=== PATIENT | female | born 1940 | race African-American/Black ===

== ENCOUNTER 2017-12-02 18:31 | Inpatient (IN) | payer MEDICARE, OTHER ==
[~2017-12-02] VITALS: Ht 162.6 cm; Wt 70.3 kg
[2017-12-02] MEDS ORDERED: Z GUARD REMEDY PASTE 57 GM TUBE TOP PRN (20:15)
[2017-12-02] MEDS ORDERED: HYDROCODONE/APAP 5-325MG TABLET PO PRN (20:15)
[2017-12-02] MEDS ORDERED: MAGNESIUM HYDROXIDE 30 ML LIQUID UDC PO PRN (20:15)
[2017-12-02] MEDS ORDERED: ACETAMINOPHEN 325 MG TABLET PO PRN (20:15)
[2017-12-02] MEDS ORDERED: ONDANSETRON 4 MG/2 ML VIAL IV PRN (20:15)
[2017-12-02 21:19] LABS: BASOPHILS % (AUTO) 0.4 % (0.0-2.0); EOSINOPHILS # (AUTO) 0.1 K/uL (0.0-0.7); EOSINOPHILS % (AUTO) 3.2 % (0.0-7.0); HEMOGLOBIN 13.6 g/dL (10.9-14.3); LYMPHOCYTES # (AUTO) 0.3 K/uL (20.0-40.0); LYMPHOCYTES % (AUTO) 7.9 % (20.5-51.5); MEAN CORPUSCULAR HEMOGLOBIN 27.8 uug (24.7-32.8); MEAN CORPUSCULAR HGB CONC 33 g/dL (32.3-35.6); MONOCYTES # (AUTO) 0.3 K/uL (2.0-10.0); NEUTROPHILS # (AUTO) 3.1 K/uL (1.8-8.9); NEUTROPHILS % (AUTO) 80.5 % (38.5-71.5); PLATELET COUNT (AUTO) 174 K/uL (179-408); RED BLOOD CELL COUNT(AUTO) 4.88 MIL/uL (3.63-4.92); WHITE BLOOD COUNT (AUTO) 3.9 K/uL (3.8-11.8)
[2017-12-02 21:29] LABS: CARBON DIOXIDE 31 mmol/L (21-32); CHLORIDE 102 mmol/L (98-107); CREATININE 0.8 mg/dL (0.6-1.3); GLUCOSE 96 mg/dL (74-106); POTASSIUM 4.2 mmol/L (3.5-5.1); UREA NITROGEN, BLOOD 12 mg/dL (7-18)
[2017-12-02 22:15] VITALS: BP 124/58
[2017-12-03 04:00] VITALS: BP 117/59
[2017-12-03 06:04] LABS: BASOPHILS % (AUTO) 0.5 % (0.0-2.0); EOSINOPHILS # (AUTO) 0.2 K/uL (0.0-0.7); EOSINOPHILS % (AUTO) 3.9 % (0.0-7.0); HEMATOCRIT 35.9 % (31.2-41.9); HEMOGLOBIN 11.8 g/dL (10.9-14.3); LYMPHOCYTES # (AUTO) 0.4 K/uL (20.0-40.0); LYMPHOCYTES % (AUTO) 9.3 % (20.5-51.5); MEAN CORPUSCULAR HEMOGLOBIN 27.8 uug (24.7-32.8); MEAN CORPUSCULAR HGB CONC 33 g/dL (32.3-35.6); MEAN CORPUSCULAR VOLUME 84.2 fL (75.5-95.3); MONOCYTES # (AUTO) 0.4 K/uL (2.0-10.0); MONOCYTES % (AUTO) 9.8 % (0.0-11.0); NEUTROPHILS # (AUTO) 3.1 K/uL (1.8-8.9); NEUTROPHILS % (AUTO) 76.5 % (38.5-71.5); PLATELET COUNT (AUTO) 154 K/uL (179-408); RED BLOOD CELL COUNT(AUTO) 4.26 MIL/uL (3.63-4.92)
[2017-12-03 06:12] LABS: CARBON DIOXIDE 28 mmol/L (21-32); CHLORIDE 104 mmol/L (98-107); CREATININE 0.8 mg/dL (0.6-1.3); GLUCOSE 108 mg/dL (74-106); MAGNESIUM 1.8 mg/dL (1.8-2.4); PHOSPHOROUS 3.9 mg/dL (2.5-4.9); POTASSIUM 3.6 mmol/L (3.5-5.1); UREA NITROGEN, BLOOD 16 mg/dL (7-18)
[2017-12-03 11:17] VITALS: BP 122/61
[2017-12-03 15:36] VITALS: BP 100/46
[2017-12-03 19:25] VITALS: BP 115/61
== END 2017-12-03 21:18 | DRG 556 ==
LOC: ER 18:33 → MED 22:00
PROVIDERS: ADMIT Internal Medicine; ATTEND Internal Medicine
DX: M25.551 Pain in right hip (principal); F22 Delusional disorders; T76.11XA Adult physical abuse, suspected, initial encounter; F41.8 Other specified anxiety disorders; F29 Unspecified psychosis not due to a substance or known physiological condition
CPT/HCPCS: 36415; 71045; 72170; 73502; 83735; 84100; 85025; 93005; A4663

== ENCOUNTER 2017-12-03 22:00 | Inpatient (IN) | payer MEDICARE, OTHER ==
[~2017-12-03] VITALS: Ht 162.6 cm; Wt 69.4 kg
[2017-12-03] MEDS ORDERED: LORAZEPAM 1 MG TABLET PO PRN (22:45)
[2017-12-03] MEDS ORDERED: ACETAMINOPHEN 325 MG TABLET PO PRN (22:45)
[2017-12-03] MEDS ORDERED: MAG HYDROX/AL HYDROX/SIMETH 30 ML LIQUID UDC PO PRN (22:45)
[2017-12-03] MEDS ORDERED: MAGNESIUM HYDROXIDE 30 ML LIQUID UDC PO PRN (22:45)
--- NOTE | 2017-12-04 00:10 | NUR ---
GPS:AT APPROX 21:50 PM, ADMITTED 77 YEARS OLD FEMALE FROM MED SURG FLOOR TO MHU ON A 5150 HOLD FOR GD VIA W/C. PT LIVES AT HOME. PATIENT NOTED AGGRESSIVE TOWARD STAFF, AGITATION. PSYCHOTIC BEHAVIOR, SHE WAS MEDICALLY CLEARED, AND PUT ON 5150 HOLD. PATIENT WAS NOTED A/O X 3 , ABLE TO AMBULATED WITH STEADY GAIT. PT WAS NOTED WITH PRESSURED SPEECH, ANGRY, DEMANDING, COMPLAINING, UNCOOPERATIVE WITH ADMISSION PROCESS, ARGUMENTATIVE, POOR INSIGHT, POOR JUDGMENT, POOR IMPULSE CONTROL. SHE DENIED BEHAVIOR. PATIENT IS UNDER THE CARE OF DR INIGUEZ.REFUSED SKIN ASSESSMENT . SKIN WAS NOTED WARM, DRY AND INTACT. PATIENT WAS GIVEN UNIT RULES. WILL CONTINUE TO MONITOR.
[2017-12-04 00:24] VITALS: BP 115/61
--- NOTE | 2017-12-04 06:45 | NUR ---
GPS; REMAIN UNCOOPERATIVE WITH STAFF. PACING IN THE HALLWAY. STATED I SHOULD NOT BE IN MHU. SLEPT 3:45 HRS THROUGH THE NIGHT.CONTINUE MONITORING FOR SAFETY.
[2017-12-04 07:30] VITALS: BP 130/76
--- NOTE | 2017-12-04 11:39 | NUR ---
Firearms Report: Printmaker completed and submitted [facility] [employer]arms Report on 12/04/17.
[2017-12-04 16:18] VITALS: BP 117/60
[2017-12-04 19:58] VITALS: BP 120/66
--- NOTE | 2017-12-05 06:43 | NUR ---
GPS: PATIENT REMAIN CALM AND COOPERATIVE WITH STAFF. PLEASANT UPON APPROACH. NO BEHAVIOR ISSUE NOTED CONTINUE PLAN OF CARE.
[2017-12-05 08:00] VITALS: BP 134/70
[2017-12-05 16:00] VITALS: BP 120/60
[2017-12-05 20:24] VITALS: BP 119/67
--- NOTE | 2017-12-05 22:00 | NUR ---
received to care, highly visible on unit, anxious, but pleasant upon approach. remains disorganized. believes people are talking about her. PRN medications were offered for anxiety or insomnia, but she declined. as of 2199, she remains awake, watching tv. no distress noted. will continue to monitor closely.
--- NOTE | 2017-12-05 23:00 | NUR ---
appears to be asleep. no distress noted.
--- NOTE | 2017-12-06 06:04 | NUR ---
slept 6 hours, total. continues to sleep, no distress noted.
[2017-12-06 07:30] VITALS: BP 154/79
[2017-12-06 15:00] VITALS: BP 123/64
[2017-12-06 20:16] VITALS: BP 135/70
--- NOTE | 2017-12-06 22:00 | NUR ---
received to care, pleasant upon approach, but needy, anxious, and paranoid. believes the doctor is keeping her in the hospital, because he is jealous of her, because she "has more education than him" she is repetitious, asking the same questions several times. as of 2199, she appears calmer, talking to her room mate quietly, in her room. no distress noted. will continue to monitor closely.
[2017-12-06] MEDS: TEMAZEPAM 7.5 MG CAPSULE PO PRN (23:28)
--- NOTE | 2017-12-06 23:38 | NUR ---
remains awake, but calm. PRN restoril was given at this time, at her request. will continue to monitor closely.
--- NOTE | 2017-12-07 00:30 | NUR ---
remains awake, talking to her room mate. remains calm. no distress noted.
--- NOTE | 2017-12-07 01:00 | NUR ---
appears to be asleep. no distress noted.
--- NOTE | 2017-12-07 06:00 | NUR ---
slept 5 hours, total. continues to sleep. no distress noted.
[2017-12-07 07:30] VITALS: BP 111/64
[2017-12-07 07:46] LABS: THYROID STIMULATING HORMONE 2.297 mIU/mL (0.358-3.740)
[2017-12-07 08:01] LABS: ALANINE AMINOTRANSFERASE 31 U/L (14-59); ALKALINE PHOSPHATASE 101 U/L (50-136); ASPARTATE AMINOTRANSFERASE 28 U/L (15-37); BILIRUBIN,TOTAL 0.4 mg/dL (0.2-1.0); CARBON DIOXIDE 29 mmol/L (21-32); CHLORIDE 106 mmol/L (98-107); CREATININE 0.6 mg/dL (0.6-1.3); GLUCOSE 94 mg/dL (74-106); MAGNESIUM 1.8 mg/dL (1.8-2.4); PHOSPHOROUS 3.5 mg/dL (2.5-4.9); TOTAL PROTEIN, SERUM 6.7 g/dL (6.4-8.2); UREA NITROGEN, BLOOD 15 mg/dL (7-18)
[2017-12-07] MEDS: risperiDONE 0.5 MG TABLET PO SCH ×2 (08:28→21:07)
[2017-12-07 08:29] LABS: BASOPHILS % (AUTO) 0.6 % (0.0-2.0); EOSINOPHILS # (AUTO) 0.2 K/uL (0.0-0.7); EOSINOPHILS % (AUTO) 7.4 % (0.0-7.0); HEMATOCRIT 35.7 % (31.2-41.9); HEMOGLOBIN 11.7 g/dL (10.9-14.3); LYMPHOCYTES # (AUTO) 0.5 K/uL (20.0-40.0); LYMPHOCYTES % (AUTO) 17.2 % (20.5-51.5); MEAN CORPUSCULAR HEMOGLOBIN 27.4 uug (24.7-32.8); MEAN CORPUSCULAR HGB CONC 33 g/dL (32.3-35.6); MEAN CORPUSCULAR VOLUME 83.9 fL (75.5-95.3); MONOCYTES # (AUTO) 0.5 K/uL (2.0-10.0); MONOCYTES % (AUTO) 15.1 % (0.0-11.0); NEUTROPHILS # (AUTO) 1.8 K/uL (1.8-8.9); NEUTROPHILS % (AUTO) 59.7 % (38.5-71.5); PLATELET COUNT (AUTO) 155 K/uL (179-408); RED BLOOD CELL COUNT(AUTO) 4.25 MIL/uL (3.63-4.92)
--- NOTE | 2017-12-07 08:47 | NUR ---
Initial Discharge Instructions: Patient was living at home with her son and his family after being evicted from her apartment of 17 years [[address] [place] [address]; [phone]]. Per both son and pt, she does not want to return there. Per pt, she wants to live somewhere where she can "live independently." Per son, he would like to know if the MD thinks she can live on her own, and is agreeable to help find her placement. SW will continue to collaborate with pt, family, and MD regarding appropriate discharge disposition for pt. SW will form a safe and proper discharge plan.
[2017-12-07 10:01] LABS: BASOPHILS % (MANUAL) 1 % (0-2); EOSINOPHILS % (MANUAL) 6 % (0-8); LYMPHOCYTES % (MANUAL) 18 % (20-40); MONOCYTES % (MANUAL) 16 % (2-10); NEUTROPHILS % (MANUAL) 59 % (42-75)
[2017-12-07] MEDS: CYANOCOBALAMIN 1000 MCG/ML VIAL IM SCH (11:00)
[2017-12-07 15:00] VITALS: BP 109/80
[2017-12-07 20:38] VITALS: BP 128/74
--- NOTE | 2017-12-07 22:00 | NUR ---
received to care, isolative in her room, guarded, but pleasant upon approach. compliant with medications, and staff direction. remains paranoid. states that the doctor staff are conspiring against her. emotional support provided. as of 2199, she appears to be asleep. no distress noted. will continue to monitor closely.
--- NOTE | 2017-12-08 00:30 | NUR ---
pt is at the nurses station. c/o another patient who is confused, and wandering. states that he was in her room, and was pounding on her window. staff was monitoring pt, and he never entered her room. firm limits set on her behavior. encouraged to go back to bed, and she did. will continue to monitor closely.
--- NOTE | 2017-12-08 01:03 | NUR ---
appears to be asleep. no distress noted.
--- NOTE | 2017-12-08 06:37 | NUR ---
slept 6.5 hours. continues to sleep. no distress noted.
[2017-12-08 07:30] VITALS: BP 125/87
[2017-12-08] MEDS: CYANOCOBALAMIN 1000 MCG/ML VIAL IM SCH ×2 (09:00→09:22)
[2017-12-08] MEDS: risperiDONE 0.5 MG TABLET PO SCH ×3 (09:21→20:37)
[2017-12-08 15:00] VITALS: BP 120/56
--- NOTE | 2017-12-08 15:37 | NUR ---
GPS: Nursing Notes: Mood Disturbance: Manic/Labile: Patient is awake and responding to her name, unpredictable behavior, believes that staff is jealous of her because she is highly educated, verbal abusive toward staff, "You are ignorant... 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
[2017-12-08] MEDS: CYANOCOBALAMIN 1,000 MCG TABLET PO SCH (16:15)
[2017-12-08 20:00] VITALS: BP 115/53
[2017-12-09 07:19] LABS: *BILIRUBIN,URIN NEGATIVE (NEGATIVE); *BLOOD, URINE NEGATIVE (NEGATIVE); *CLARITY,URINE CLEAR (CLEAR); *COLOR,URINE YELLOW (YELLOW); *KETONES,URINE NEGATIVE (NEGATIVE); *PROTEIN,URINE NEGATIVE (NEGATIVE); *UROBILINOGEN,URINE 0.2 E.U./dl (NORMAL); LEUKOCYTE ESTERASE ,URINE 1+ (NEGATIVE); NITRITE, URINE NEGATIVE (NEGATIVE); PH,URINE 8.5 (5.0-8.0); UGLUCOSE NEGATIVE (NEGATIVE)
[2017-12-09 07:30] VITALS: BP 123/70
[2017-12-09 07:37] LABS: BACTERIA,URINE MANY /HPF (NONE SEEN); RBC,URINE 0-3 /HPF (0-3); SQUAMOUS EPITHELIAL CELL,UR FEW /HPF (NONE SEEN)
[2017-12-09] MEDS: CYANOCOBALAMIN 1,000 MCG TABLET PO SCH ×2 (09:00→09:48)
[2017-12-09] MEDS: risperiDONE 0.5 MG TABLET PO SCH (09:48)
[2017-12-09] MEDS: SULFAMETH/TRIMETH 800/160 MG TABLET PO SCH ×4 (11:45→20:57)
[2017-12-09 15:48] VITALS: BP 103/52
[2017-12-09 20:02] VITALS: BP 120/64
[2017-12-09] MEDS: risperiDONE-M 0.5 MG TAB.RAPDIS PO SCH (20:49)
--- NOTE | 2017-12-09 20:57 | NUR ---
nsg: pt refused to take bactrim, stated will speak with her physician bec she has a condition called sarcoidosis. explained to patient reason to take bactrim bec of uti, still pt refused.
[2017-12-10 07:30] VITALS: BP 122/64
[2017-12-10] MEDS: SULFAMETH/TRIMETH 800/160 MG TABLET PO SCH ×2 (09:00→20:05)
[2017-12-10] MEDS: CYANOCOBALAMIN 1,000 MCG TABLET PO SCH (09:00)
[2017-12-10] MEDS: risperiDONE-M 0.5 MG TAB.RAPDIS PO SCH ×2 (09:00→20:05)
--- NOTE | 2017-12-10 09:26 | NUR ---
GPS: Nursing Notes: Thought Disorder: Patient is awake and responding to her name, refusing her antibiotic, stated "I do not have a bladder infection..", refusing her Risperdal, stated "I do not take Risperdal.. Especially from that man...", when asked about the Risperdal offer to her before, stated "I throw all those pills away... I never took Risperdal..", guarded, gets easily irritable and verbal abusive toward staff when redirected, unable to formulate a viable plan for self care, continue with treatment plan.
--- NOTE | 2017-12-10 12:12 | NUR ---
PATIENT REQUESTED TO USE HER OWN CELLPHONE , TOOK IT OUT FROM [employer] FOR HER TO USE. WHEN PATIENT DONE USED THE PHONE REFUSED TO RETURN TO NURSE,AND BECOME AGGRESSIVE AND IRRITABLE VERBAL ABUSIVE TOWARD TO STAFFS. CALLED SECURITY TO HELP REMOVED FROM HER HAND ,PATIENT IS VERY PSYCHOTIC AND BROKE THE CELLPHONE BY HERSELF.
[2017-12-10 15:17] VITALS: BP 127/63
--- NOTE | 2017-12-10 15:32 | NUR ---
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 My customer orders clerk from [place] is coming to pick me up... 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
[2017-12-10 20:40] VITALS: BP 110/51
[2017-12-10] MEDS ORDERED: LORAZEPAM 2 MG/1 ML VIAL IV ONE (21:45)
[2017-12-10] MEDS ORDERED: OLANZAPINE 10 MG VIAL IM ONE (21:45)
--- NOTE | 2017-12-10 22:00 | NUR ---
Pt REFUSED ALL HS MEDS, STATED, "I'M NOT TAKING ANYTHING YOU'RE GIVING ME, I DON'T NEED IT." Pt EDUCATED ON RISKS AND BENEFITS OF BACTRIM AND HALDOL. Pt STATES SHE IS NOT PSYCHOTIC AND DOES NOT HAVE A UTI.
--- NOTE | 2017-12-10 23:05 | NUR ---
CHEMICAL RESTRAINT NOTE: Pt WAS UNCOOPERATIVE AND NOT FOLLOWING DIRECTIONS, BEING INTRUSIVE, GOING INTO OTHER Pt's ROOMS, AND REFUSING TO COMPLY WITH STAFF DIRECTION. Pt WAS LOUD, THREATENING, ANGRY, AGITATED, AND VERBALLY ABUSIVE. DR COYLE NOTIFIED OF Pt BEHAVIOR, ZYPREXA 5mg AND ATIVAN 1mg IM ORDERED. SECURITY WAS CALLED TO ASSIST IN ADMINISTERING IM, Pt WAS RESISTANT IM ADMINISTRATION. Pt WAS POSTURING AND APPEARED READY TO GET PHYSICAL WITH STAFF. Pt WAS ESCORTED TO HER ROOM BY SECURITY AND STAFF, IM ADMINISTERED HER (L) BUTTOCK. HANDS PLACED ON Pt LESS THAN 3 MINUTES, NO INJURIES SUSTAINED TO Pt OR STAFF. Pt REMAINED INTRUSIVE AND DISRUPTIVE UNTIL APPROXIMATELY 45 MINUTES AFTER INJECTION ADMINISTERED. Pt REFUSED VS DURING THIS TIME. Pt APPEARS TO BE SLEEPING AT THIS TIME, BREATHING EVEN AND UNLABORED.
[2017-12-11 07:30] VITALS: BP 125/50
[2017-12-11] MEDS: SULFAMETH/TRIMETH 800/160 MG TABLET PO SCH (08:40)
[2017-12-11] MEDS: risperiDONE-M 0.5 MG TAB.RAPDIS PO SCH ×2 (08:40→20:37)
[2017-12-11] MEDS: CYANOCOBALAMIN 1,000 MCG TABLET PO SCH (08:40)
--- NOTE | 2017-12-11 11:31 | NUR ---
GPS: Nursing Notes: Noncompliance With Medication: Patient is awake and responding to her name, continue to be refusing her medications, refusing her antibiotic for UTI, believes that there is nothing wrong with her, refusing her Risperdal, stating "I will nothing from that man..", gets easily irritable and angry when redirected, unable to formulate a viable plan for self care, continue with treatment plan.
--- NOTE | 2017-12-11 12:09 | NUR ---
PT IS 68 Y/O FEMALE WHO PRESENT FOR AGGRESSIVE AND THREATENING BEHAVIOR TOWARD HIM AND HIS FAMILY PT IS EATING 75-100% OF MEALS ON REGULAR DIET CURRENT WT IS 153LB,BMI 26.3-OVERWEIGHT,NO SIGNIFICANT WEIGHT CHANGES NOTICED LABS:12/07 WBC-3(L),ALBUMIN-2.8(L) MEDICATION:VITAMIN B12,NO DNI BOWEL SOUND PRESENT SKIN INTACT NO NUTRITION DIAGNOSIS AT THIS TIME WILL MONITOR PO INTAKE,WEIGHT,NEW LABS Addendum: 12/15/17 at [address] Amended: Links added.
[2017-12-11 16:46] VITALS: BP 119/50
[2017-12-11 20:29] VITALS: BP 125/62
[2017-12-11] MEDS: NITROFURANTOIN/NITROFURAN MAC 100 MG CAPSULE PO SCH (20:37)
--- NOTE | 2017-12-11 21:52 | NUR ---
Pt STATED SHE WAS ANXIOUS, PRN ATIVAN OFFERED, AND Pt STATED SHE WOULD TAKE IT. WHEN ATIVAN WAS OPENED TO ADMINISTER, Pt REFUSED TO TAKE IT. MEDICATION TO BE WASTED WITH PLATE ROLLER, RUDI Whitfield
[2017-12-12 07:30] VITALS: BP 112/47
[2017-12-12] MEDS: CYANOCOBALAMIN 1,000 MCG TABLET PO SCH (09:00)
[2017-12-12] MEDS: risperiDONE-M 0.5 MG TAB.RAPDIS PO SCH ×2 (09:00→21:00)
[2017-12-12] MEDS: NITROFURANTOIN/NITROFURAN MAC 100 MG CAPSULE PO SCH ×2 (09:00→21:00)
[2017-12-12 16:20] VITALS: BP 95/55
[2017-12-12 20:00] VITALS: BP 110/79
[2017-12-13 07:30] VITALS: BP 170/68
[2017-12-13 08:02] LABS: ALANINE AMINOTRANSFERASE 28 U/L (14-59); ALKALINE PHOSPHATASE 116 U/L (50-136); ASPARTATE AMINOTRANSFERASE 25 U/L (15-37); BILIRUBIN,TOTAL 0.4 mg/dL (0.2-1.0); CARBON DIOXIDE 28 mmol/L (21-32); CHLORIDE 105 mmol/L (98-107); CREATININE 0.7 mg/dL (0.6-1.3); GLUCOSE 90 mg/dL (74-106); MAGNESIUM 1.8 mg/dL (1.8-2.4); PHOSPHOROUS 3.4 mg/dL (2.5-4.9); POTASSIUM 3.6 mmol/L (3.5-5.1); TOTAL PROTEIN, SERUM 7.4 g/dL (6.4-8.2); UREA NITROGEN, BLOOD 12 mg/dL (7-18)
[2017-12-13 08:17] LABS: BASOPHILS % (AUTO) 0.8 % (0.0-2.0); EOSINOPHILS # (AUTO) 0.2 K/uL (0.0-0.7); EOSINOPHILS % (AUTO) 8.5 % (0.0-7.0); HEMATOCRIT 38.1 % (31.2-41.9); HEMOGLOBIN 12.5 g/dL (10.9-14.3); LYMPHOCYTES # (AUTO) 0.5 K/uL (20.0-40.0); LYMPHOCYTES % (AUTO) 18.8 % (20.5-51.5); MEAN CORPUSCULAR HEMOGLOBIN 27.4 uug (24.7-32.8); MEAN CORPUSCULAR HGB CONC 33 g/dL (32.3-35.6); MEAN CORPUSCULAR VOLUME 83.3 fL (75.5-95.3); MONOCYTES # (AUTO) 0.3 K/uL (2.0-10.0); MONOCYTES % (AUTO) 12.8 % (0.0-11.0); NEUTROPHILS # (AUTO) 1.6 K/uL (1.8-8.9); NEUTROPHILS % (AUTO) 59.1 % (38.5-71.5); RED BLOOD CELL COUNT(AUTO) 4.58 MIL/uL (3.63-4.92)
[2017-12-13 08:27] LABS: PLATELET COUNT (AUTO) 197 K/uL (179-408); WHITE BLOOD COUNT (AUTO) 2.7 K/uL (3.8-11.8)
[2017-12-13] MEDS: risperiDONE-M 0.5 MG TAB.RAPDIS PO SCH (09:00)
[2017-12-13] MEDS: CYANOCOBALAMIN 1,000 MCG TABLET PO SCH (09:00)
[2017-12-13] MEDS: NITROFURANTOIN/NITROFURAN MAC 100 MG CAPSULE PO SCH ×2 (09:00→20:55)
[2017-12-13 09:53] LABS: BAND % (MANUAL) 1 % (0-10); EOSINOPHILS % (MANUAL) 5 % (0-8); LYMPHOCYTES % (MANUAL) 23 % (20-40); MONOCYTES % (MANUAL) 11 % (2-10); NEUTROPHILS % (MANUAL) 60 % (42-75)
[2017-12-13 20:00] VITALS: BP 136/74
[2017-12-13] MEDS: risperiDONE 1 MG TABLET PO SCH (20:55)
[2017-12-13] MEDS ORDERED: HALOPERIDOL LACTATE 5 MG/1 ML VIAL IM PRN (21:00)
--- NOTE | 2017-12-13 21:00 | NUR ---
RECEIVED PATIENT IN THE HALLWAY, SHE WAS NOTED A/O X 4, SHE IS ABLE TO AMBULATED WITH STEADY GAIT. SHE WAS NOTED HYPERVERBAL, EASILY IRRITABLE, SUSPICIOUS, INTRUSIVE, GRANDIOUS BX. NO AGGRESSIVE BX NOTED. SHE DENIES SI, VH OR AH NOTED AT THIS TIME. PATIENT IS REISE; HOWEVER, SHE WAS COMPLIANT WITH [facility] MEDICATION REGIMENT AT THIS TIME. PT IS EASILY REDIRECTABLE. SAFETY EMPHASIS. WILL CONTINUE TO MONITOR.
[2017-12-14] MEDS: TEMAZEPAM 7.5 MG CAPSULE PO PRN (00:41)
--- NOTE | 2017-12-14 00:50 | NUR ---
PT APPROX THE NURSING STATION AND STATED THAT SHE WAS UNABLE TO SLEEP. TEMAZEPAM 7.5MG PO PRN WAS GIVEN FOR INSOMNIA PER NURSING ASSESSMENT. WILL CONTINUE TO MONITOR.
[2017-12-14 07:30] VITALS: BP 133/53
[2017-12-14] MEDS: NITROFURANTOIN/NITROFURAN MAC 100 MG CAPSULE PO SCH ×2 (09:38→20:25)
[2017-12-14] MEDS: CYANOCOBALAMIN 1,000 MCG TABLET PO SCH (09:38)
[2017-12-14] MEDS: risperiDONE 1 MG TABLET PO SCH ×2 (09:38→20:25)
[2017-12-14 16:30] VITALS: BP 127/49
--- NOTE | 2017-12-14 20:30 | NUR ---
RECEIVED PATIENT IN THE HALLWAY, SHE WAS NOTED A/O X 4, SHE IS ABLE TO AMBULATED WITH STEADY GAIT. SHE WAS NOTED PLEASANT AND COOPERATIVE; LESS SUSPICIOUS, LESS INTRUSIVE, AND LESS HYPERVERBAL. SHE DENIES SI, VH AT THIS TIME. PATIENT IS REISE; HOWEVER, SHE WAS COMPLIANT WITH [facility] MEDICATION REGIMENT AT THIS TIME. PT IS EASILY REDIRECTABLE. SAFETY EMPHASIS. WILL CONTINUE TO MONITOR.
[2017-12-14 21:13] VITALS: BP 119/60
[2017-12-15 07:30] VITALS: BP 132/69
[2017-12-15] MEDS: CYANOCOBALAMIN 1,000 MCG TABLET PO SCH (09:37)
[2017-12-15] MEDS: NITROFURANTOIN/NITROFURAN MAC 100 MG CAPSULE PO SCH ×2 (09:37→21:45)
[2017-12-15] MEDS: risperiDONE 1 MG TABLET PO SCH ×2 (09:37→21:45)
--- NOTE | 2017-12-15 15:03 | NUR ---
patient a/o times three more self disclousure to staff affect brighter and mood brighter, no c/o pain or discomfort out of room more today assisted as needed continue safety
[2017-12-15 15:58] VITALS: BP 114/75
[2017-12-15 20:00] VITALS: BP 129/56
[2017-12-16 07:30] VITALS: BP 132/76
[2017-12-16] MEDS: CYANOCOBALAMIN 1,000 MCG TABLET PO SCH (08:20)
[2017-12-16] MEDS: risperiDONE 1 MG TABLET PO SCH (08:20)
[2017-12-16] MEDS: NITROFURANTOIN/NITROFURAN MAC 100 MG CAPSULE PO SCH (08:20)
[2017-12-16 15:52] VITALS: BP 123/60
--- NOTE | 2017-12-16 17:46 | NUR ---
patient less anxious this shift , still paranoid about whats happening outside world ,no disclousure of true feelings continue to provide a safe environment and 1;1
[2017-12-16 19:45] VITALS: BP 131/53
[2017-12-16] MEDS ORDERED: risperiDONE 2 MG TABLET PO SCH (21:00)
--- NOTE | 2017-12-17 06:21 | NUR ---
GPS: REMAIN CALM AND COOPERATIVE. SLEPT 5 HRS THROUGH THE NIGHT. REFUSED TO TAKE SLEEPING MEDICATION. CONTINUE MONITORING FOR SAFETY.
[2017-12-17 07:30] VITALS: BP 112/61
[2017-12-17] MEDS: CYANOCOBALAMIN 1,000 MCG TABLET PO SCH (08:50)
[2017-12-17] MEDS: risperiDONE 1 MG TABLET PO SCH (08:50)
--- NOTE | 2017-12-17 13:54 | NUR ---
DC Note: Patient will be discharged to an Independent Living [[address] [place] [address]; [phone]] via private transportation. Patients cecile Logan [[phone]] stated he will vegetable picker patient between 3pm and 3:30pm. JAIRO spoke with Nan from [facility] [[phone]] who confirmed discharge plans. SW left a voicemail for El at the [facility] with details of patients discharge plans. Patient is alert and oriented x4. Patient is aware and agreeable to discharge plans. Patients cecile Logan is aware and agreeable to discharge plans. Patient was referred to [facility] [phone] for [employer] Expert referrals. Patient was also provided referrals for outpatient psychiatrists: Dr. Vicente [[phone]], Dr. Frausto [[phone]], and Dr. Garcia [[phone]]. Patient was provided with additional outpatient mental health resources to [facility] , [facility] , and the National Suicide Prevention Lifeline .
[2017-12-17 15:00] VITALS: BP 132/76
--- NOTE | 2017-12-17 16:31 | NUR ---
Pt is being discharged by her son Silvestre to be taken to Independent Living. Pt is aware and willing to go. Pt agreed to continue her medications and follow up with a psychiatrist. All belongings returned. Vital signs are stable, no distress noted.
== END 2017-12-17 15:35 | DRG 885 ==
LOC: GPS 22:00
PROVIDERS: ADMIT Psychiatry & Neurology Psychiatry; ATTEND Internal Medicine
DX: F39 Unspecified mood [affective] disorder (principal); E44.0 Moderate protein-calorie malnutrition; D69.6 Thrombocytopenia, unspecified; N39.0 Urinary tract infection, site not specified; E53.8 Deficiency of other specified B group vitamins; F41.8 Other specified anxiety disorders; Z91.81 History of falling; Z62.810 Personal history of physical and sexual abuse in childhood; B96.20 Unspecified Escherichia coli [E. coli] as the cause of diseases classified elsewhere; Z68.26 Body mass index [BMI] 26.0-26.9, adult; D72.819 Decreased white blood cell count, unspecified; R60.0 Localized edema; M16.11 Unilateral primary osteoarthritis, right hip
CPT/HCPCS: 36415; 83735; 84100; 84443; 85025; 87077; 87086; J2060; J2358; J3420